=== PATIENT | male | born 1990 | race Caucasian/White ===

== ENCOUNTER 2024-11-21 07:44 | Outpatient (CLI) | payer OTHER, SELFPAY ==
--- OUTSIDE RECORDS SUMMARY | 2024-11-21 07:48 | XMS_ITS | Patient Health Record ---
Author Organization [facility] Address [address] [place] [address] Care Team Providers Care Intravenous Therapy Nurse Name Role Phone TOYA DOWNING Primary Care Provider Reason For Referral No Information Medications Medication SIG (Take, Route, Frequency, Duration) Notes Start Date End Date Status Augmentin 875 mg-125 mg 1 (one) tablet(s ) or oral 2 times a day; Duration: seven 04/16/2012 Active Plan Of Treatment No Information Insurance Providers Payer Name Payer Address Payer Phone Subscriber Number Group Number Insured Name Patient Relationship to Insured Coverage Start Date Coverage End Date [employer] [address] [address] [place] [address] [id number] Jeffrey Max Self - patient is the insured
--- OUTSIDE RECORDS SUMMARY | 2024-11-21 07:48 | XMS_ITS | Clinical Summary ---
Author Organization [facility] Address [address] [place], [place] [id number] Phone [email or web address] Care Team Providers Care Retail Planning Manager Name Role Phone Unavailable Primary Care Provider Unavailabl e Allergies No known active allergies Medications No known medications Active Problems Problem Noted Date Diagnosed Date Late effect of sprain and strain 12/10/2014 Overview (08/29/2017): Social History Tobacco Use Types Packs/Day Years Used Date Smoking Tobacco: Never Smokeless Tobacco: Never Intimate Partner Violence Answer Date R ecorded Insults You Not on file 07/14/2020 Threatens You Not on file 07/14/2020 Screams at You Not on file 07/14/2020 Physically Hurt Not on file 07/14/2020 Intimate Partner Violence Score Not on file 07/14/2020 Stress Answer Date Recorded Stress in your Life Not on file 02/04/2024 Dealing with Stress 3 02/04/2024 Sex and Gender Information Value Date Recorded Sex Assigned at Not on file Legal Sex Male 9:27 AM CDT Gender Identity Not on file Sexual Orientation Not on file Last Filed Vital Signs Vital Sign Reading Time Taken Comments Blood Pressure 123/76 02/27/2022 1:18 PM EST Pulse 53 02/27/2022 1:18 PM EST Temperature 35.9 C (96.7 F) 02/27/2022 1:18 PM EST Respiratory Rate 12 02/27/2022 1:18 PM EST Oxygen Saturation 98% 02/27/2022 1:18 PM EST Inhaled Oxygen Concentration - - Weight 110 kg (243 lb) 02/27/2022 1:18 PM EST Height 188 cm (6' 2 ) 02/27/2022 1:18 PM EST Body Mass Index 31.2 02/27/2022 1:18 PM EST Plan of Treatment Health Maintenance Due Date Last Done Comments Dental Cleaning/Exam 1990 HIV Screening 1990 Hepatitis C Screening 1990 Tetanus Diphtheria and Pertussis Immunization (2 - Tdap) 10/28/2002 10/27/2002 HPV Immunization (1 - Male 3-dose series) 2005 Annual Preventive Exam 2008 Hep B Infection Screening - Triple Screen 2008 Covid-19 Immunization (1 - season) 2023 Influenza Immunization (#1) 2024 Hepatitis B Immunization Completed 002, 08/15/2001, 05/31/2001, Additional history exists HIB Immunization Aged Out No longer e ligible based on patient's age to complete this topic Hepatitis A Immunization Aged Out No longer eligible based on patient's age to complete this topic Pneumococcal: Ped (0 to 5 Yrs) and At-Risk Member (6 to 64 Yrs) Aged Out No longer eligible based on patient's age to complete this topic Polio Immunization Aged Out No longer eligible based on patient's age to complete this topic Varicella Immunization Aged Out No lo nger eligible based on patient's age to complete this topic Insurance OPT OUT NO COPAY NB
[2024-11-21 08:14] LABS: Hematocrit 40.7 % (42.0-52.0); Hemoglobin 13.8 g/dL (14.1-18.0); Immature Granulocytes % 0.2 %; Mean Corpuscular HGB Conc 33.9 g/dL (31.8-35.4); Mean Corpuscular Hemoglobin 28.8 pg (27.0-31.2); Mean Corpuscular Volume 84.8 fl (80-94); Nucleated Red Blood Cells % 0 %; Platelet Count 299 K/mm3 (142-424); Red Blood Count 4.80 M/mm3 (4.60-6.20); Red Cell Distribution Width-SD 37.2 fL; White Blood Count 5.0 K/mm3 (4.8-10.8)
[2024-11-21 08:51] LABS: Chloride 103 mmol/L (98-107)
[2024-11-21 08:52] LABS: Albumin Level 4.5 g/dl (3.5-5.0); Potassium 4.8 mmoL/L (3.5-5.1); Sodium 138 mmol/L (136-145)
[2024-11-21 08:54] LABS: Alanine Aminotransferase 60 U/L (12-78); Aspartate Amino Transferase 48 U/L (17-59); Blood Urea Nitrogen 19 mg/dl (9-20); Creatinine,Serum 1.10 mg/dl (0.66-1.25); Estimated Glomerular Filt Rate 77 ml/min (>60); GFR (African American) 93 ML/MIN (>60)
[2024-11-21 08:55] LABS: Albumin/Globulin Ratio 1.7 (1.1-1.8); Alkaline Phosphatase 76 U/L (38-126); Anion Gap 10.8 mEq/L (5-15); Bilirubin,Total 0.5 mg/dl (0.2-1.3); Calcium 9.9 mg/dl (8.4-10.2); Carbon Dioxide 29 mmol/L (22.0-30.0); Cholesterol 183 mg/dl (140-200); Globulin 2.7 g/dL (1.3-3.2); Glucose 98 mg/dl (74-100); HDL Cholesterol 33 mg/dl (40-60); Total Protein,Serum 7.2 g/dl (6.3-8.2); Triglycerides 142 mg/dl (30-150)
[2024-11-21 09:25] LABS: Thyroid Stimulating Hormone 0.96 uIU/mL (0.465-4.68)
== END 2024-11-21 23:59 | disposition home or self-care (01) ==
LOC: LAB 07:47
PROVIDERS: PCP Nurse Practitioner Family; Visit Provider Nurse Practitioner Family
DX: Z00.00 Encounter for general adult medical examination without abnormal findings (principal); I10 Essential (primary) hypertension; E78.5 Hyperlipidemia, unspecified; R53.83 Other fatigue
CPT/HCPCS: 36415; 80053; 80061; 84443; 85025